=== PATIENT | male | born 2000 | race Caucasian/White ===

== ENCOUNTER 2020-12-01 16:58 | Emergency (ER) | payer OTHER ==
[2020-12-01] MEDS ORDERED: DEXAMETHASONE SOD PHOSPHATE INJ 4 MG/1 ML VIAL IM ONE (17:26)
[2020-12-01] MEDS ORDERED: KETOROLAC TROMETHAMINE 60 MG/2 ML SDV IM ONE (17:27)
--- NOTE | 2020-12-01 17:31 | ER Document Report ---
HPI - HPI Time Seen by Provider: 12/01/20 17:23 Notes: Otherwise healthy 20-year-old male presented to the emergency department with complaints of sore throat that began at 11:00 this morning. Patient reports symptoms began abruptly, he felt fine prior to that. He denies any fever or chills. He reports pain with swallowing but he is able to swallow. - ROS Systems Reviewed and Negative: Yes All other systems reviewed and negative - EENT EENT: REPORTS: Sore Throat Past Medical History - General Information source: Patient - Social History Smoking Status: Never Smoker Frequency of alcohol use: None Drug Abuse: None Family History: Reviewed & Not Pertinent - Medical History Medical History: Negative Surgical Hx: Negative Vertical Provider Document - CONSTITUTIONAL Notes: PHYSICAL EXAMINATION: GENERAL: Well-appearing, well-nourished and in no acute distress. HEAD: Atraumatic, normocephalic. EYES: Pupils equal round extraocular movements intact, conjunctiva are normal. ENT: Nares patent, oropharynx clear, nonerythematous, no tonsillar swelling or exudates noted. Uvula midline. No evidence of peritonsillar abscess. NECK: Normal range of motion, no cervical lymphadenopathy. LUNGS: No respiratory distress Musculoskeletal: Normal range of motion NEUROLOGICAL: Normal speech, normal gait. PSYCH: Normal mood, normal affect. SKIN: Warm, Dry, normal turgor, no rashes or lesions noted. Course - Re-evaluation Re-evalutation: Patient speaking in full complete sentences, swallowing without difficulty. Rapid strep negative. Throat culture pending. The patient's emergency department workup and current diagnosis were explained to the patient and or family. Follow-up instructions were provided. Medications if prescribed were discussed. Instructions for when to return to the emergency department including specific worrisome symptoms were discussed with the patient and/or family. - Vital Signs Vital signs: Temp Pulse Resp BP Pulse Ox 98.5 F 68 16 135/75 H 97 12/01/20 17:02 12/01/20 17:02 12/01/20 17:02 12/01/20 17:02 12/01/20 17:02 - Laboratory Results Critical Laboratory Results Reviewed: No Critical Results - Radiology Results Critical Radiology Results Reviewed: No Critical Results Discharge - Discharge Clinical Impression: Sore throat Condition: Stable Disposition: HOME, SELF-CARE Instructions: Sore Throat ([facility]) Additional Instructions: Your rapid strep test was negative. Covid test is pending. You were given a dose of steroids here in the emergency department, this should help with some of the swelling and inflammation. Please take ibuprofen 600 mg every 6 hours. Return if any new or worsening symptoms to include inability to swallow, inability to swallow your saliva or hoarse voice. We will call you if the throat culture grows out anything. Forms: Return to Work
[2020-12-01 19:31] VITALS: BP 128/72
== END 2020-12-01 19:22 | disposition home or self-care (01) ==
LOC: ER 16:58
DX: J02.9 Acute pharyngitis, unspecified (principal); Z20.822 Contact with and (suspected) exposure to COVID-19
CPT/HCPCS: 99284; 96372; 87070; 87880; 87635; J1100; J1885; C9803; 36415